=== PATIENT | female | born 2000 | race Caucasian/White ===

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

== ENCOUNTER 2025-03-14 16:10 | Emergency (ER) | payer OTHER ==
--- NOTE | 2025-03-14 17:45 | ED ---
General Adult HPI - General Chief complaint: ENT Stated complaint: trouble swallowing Time Seen by Provider: 03/14/25 16:25 Source: patient, RN notes reviewed Mode of arrival: ambulatory Limitations: no limitations - History of Present Illness Initial comments: 24-year-old female presents emergency department with complaints of sore throat, difficulty in swallowing. States that symptoms have been worsening over the past 3 days. Endorses chills with no reported fevers. Denies cough. Endorses congestion and rhinorrhea. States that she has a frequent recurrence of strep pharyngitis. Denies recent antibiotic use. Denies difficulty in swallowing however states that this is painful. - Related Data Home Medications Medication Instructions Recorded Confirmed Cetirizine HCl [Zyrtec] 10 mg PO HS 01/27/18 03/23/19 cloNIDine HCL [Catapres] 0.1 mg PO HS 01/27/18 03/23/19 Albuterol Inhaler [Ventolin Hfa 2 puff INHALATION RT-Q6H PRN 09/08/18 03/23/19 Inhaler] Albuterol Nebulized [Ventolin 2.5 mg INHALATION RT-Q6H PRN 09/08/18 03/23/19 Nebulized] Norgestimate-Ethinyl Estradiol 1 tab PO HS 09/08/18 03/23/19 [Ortho Tri-Cyclen 28 Tablet] predniSONE 10 mg PO TID 03/23/19 03/23/19 Previous Rx's Medication Instructions Recorded Albuterol Inhaler [Ventolin Hfa 1 - 2 puff INHALATION RT-Q6H PRN 09/08/18 Inhaler] 30 Days #2 inhaler Omeprazole [PriLOSEC] 20 mg PO AC-BRKFST #14 cap 09/14/18 Fluticasone Nasal [place] [Flonase 1 spray EA NOSTRIL DAILY 3 Days #1 03/24/19 Nasal [place]] bottle Loratadine [Claritin] 10 mg PO DAILY 7 Days #7 tab 03/24/19 Amoxicillin 875 mg PO Q12HR #20 tablet 03/14/25 Allergies Allergy/AdvReac Type Severity Reaction Status Date / Time aspirin Allergy Swelling Verified 03/14/25 16:21 Review of Systems ROS Statement: Those systems with pertinent positive or pertinent negative responses have been documented in the HPI. ROS Other: All systems not noted in ROS Statement are negative. Past Medical History Past Medical History: Asthma History of Any Multi-Drug Resistant Organisms: None Reported Past Surgical History: No Surgical Hx Reported Past Psychological History: Depression Smoking Status: Current every day smoker, Vaper Past Alcohol Use History: Occasional Past Drug Use History: Marijuana General Exam Limitations: no limitations General appearance: alert, in no apparent distress ENT exam: Present: normal exam, mucous membranes moist Expanded Throat exam: tonsillar erythema, tonsillomegaly, tonsillar exudate. negative: R peritonsillar mass, L peritonsillar mass Neck exam: Present: normal inspection, lymphadenopathy (tonsillar). Absent: tenderness, meningismus Respiratory exam: Present: normal lung sounds bilaterally. Absent: respiratory distress, wheezes, rales, rhonchi, stridor Cardiovascular Exam: Present: regular rate, normal rhythm, normal heart sounds. Absent: systolic murmur, diastolic murmur, rubs, gallop, clicks GI/Abdominal exam: Present: soft, normal bowel sounds. Absent: distended, tenderness, guarding, rebound, rigid Extremities exam: Present: normal inspection, full ROM, normal capillary refill. Absent: tenderness, pedal edema, joint swelling, calf tenderness Back exam: Present: normal inspection Course Vital Signs 03/14/25 03/14/25 16:17 18:31 Temperature 98.3 F 98.4 F Pulse Rate 65 62 Respiratory 16 18 Rate Blood Pressure 104/62 109/69 O2 Sat by Pulse 100 100 Oximetry Medical Decision Making - Medical Decision Making Was pt. sent in by a medical professional or institution (, PA, BUNDLE BREAKER, urgent care, hospital, or half-way...) When possible be specific @ -No Did you speak to anyone other than the patient for history (EMS, parent, family, police, friend...)? What history was obtained from this source @ -No Did you review nursing and triage notes (agree or disagree)? Why? @ -I reviewed and agree with nursing and triage notes Were old charts reviewed (outside hosp., previous admission, EMS record, old EKG, old radiological studies, urgent care reports/EKG's, half-way records)? Report findings @ -No old charts were reviewed Differential Diagnosis (chest pain, altered mental status, abdominal pain women, abdominal pain men, vaginal bleeding, weakness, fever, dyspnea, syncope, headache, dizziness, GI bleed, back pain, seizure, CVA, palpatations, mental health, musculoskeletal)? @ -COVID 19, RSV, influenza, pneumonia, acute bronchitis, URI, strep pharyngitis , this list is not all inclusive EKG interpreted by me (3pts min.). @ -None X-rays interpreted by me (1pt min.). @ -None done CT interpreted by me (1pt min.). @ -None done U/S interpreted by me (1pt. min.). @ -None done What testing was considered but not performed or refused? (CT, X-rays, U/S, labs)? Why? @ -None What meds were considered but not given or refused? Why? @ -None Did you discuss the management of the patient with other professionals (professionals i.e. , PA, BUNDLE BREAKER, lab, RT, psych nurse, manager social media, advertising operations manager, teacher, health officer, outsole caser)? Give summary @ -No Was smoking cessation discussed for >3mins.? @ -No Was critical care preformed (if so, how long)? @ -No Were there social determinants of health that impacted care today? How? (Homelessness, low income, unemployed, alcoholism, drug addiction, transportation, low edu. Level, literacy, decrease access to med. care, penitentiary, rehab)? @ -No Was there de-escalation of care discussed even if they declined (Discuss DNR or withdrawal of care, Hospice)? DNR status @ -No What co-morbidities impacted this encounter? (DM, HTN, Smoking, COPD, CAD, Cancer, CVA, ARF, Chemo, Hep., AIDS, mental health diagnosis, sleep apnea, morbid obesity)? @ -None Was patient admitted / discharged? Hospital course, mention meds given and route, prescriptions, significant lab abnormalities, going to OR and other pertinent info. @ -Discharged. 24-year-old female presenting to emergency department with sore throat. Patient has elevated Centor criteria with bilateral tonsillar exudates and tonsillar erythema, absence of cough, low-grade fevers. Patient will be treated for strep pharyngitis with amoxicillin. Additionally, is provided with oral lidocaine for numbing and dose of Decadron. case discussed with Dr. Castañeda Undiagnosed new problem with uncertain prognosis? @ -No Drug Therapy requiring intensive monitoring for toxicity (Heparin, Nitro, Insulin, Cardizem)? @ -No Were any procedures done? @ -No Diagnosis/symptom? @ -Strep pharyngitis Acute, or Chronic, or Acute on Chronic? @ -Acute Uncomplicated (without systemic symptoms) or Complicated (systemic symptoms)? @ -uncomplicated Side effects of treatment? @ -No Exacerbation, Progression, or Severe Exacerbation? @ -No Poses a threat to life or bodily function? How? (Chest pain, [place], [place], pneumonia, PE, COPD, DKA, ARF, appy, cholecystitis, CVA, Diverticulitis, Homicidal, Suicidal, threat to staff... and all critical care pts) @ -No - Lab Data Lab Results 03/14/25 03/14/25 Range/Units 18:12 18:12 Influenza Type A (PCR) Not Detected (Not Detectd) Influenza Type B (PCR) Not Detected (Not Detectd) RSV (PCR) Not Detected (Not Detectd) SARS-CoV-2 (PCR) Not Detected (Not Detectd) Group A Strep (PCR) DETECTED A (Not Detectd) Disposition Clinical Impression: Strep pharyngitis Disposition: HOME SELF-CARE Condition: Stable Instructions (If sedation given, give patient instructions): Strep Throat (ED) Additional Instructions: Please return to the Emergency Department if symptoms worsen or any other concerns. Prescriptions: Amoxicillin 875 mg PO Q12HR #20 tablet Is patient prescribed a controlled substance at d/c from ED?: No Referrals: None,Stated [Primary Care Provider] - 1-2 days Time of Disposition: 18:00
[2025-03-14] MEDS: DEXAMETHASONE SOD PHOSPHATE 4 MG/ML 1 ML VIAL IM STA (18:21)
[2025-03-14] MEDS: LIDOCAINE VISCOUS 2% 15 ML CUP PO ONE (18:21)
[2025-03-14] MEDS: AMOXICILLIN 875 MG TAB PO STA (18:22)
[2025-03-14 18:37] VITALS: BP 109/69; PULSE 62; RESP 18; TEMP 98.4
[2025-03-14 18:54] LABS: Influenza A Not Detected (Not Detectd); Influenza B Not Detected (Not Detectd); RSV Not Detected (Not Detectd)
== END 2025-03-14 18:42 | disposition home or self-care (01) ==
LOC: EC 16:10
DX: J02.0 Streptococcal pharyngitis (principal); F17.290 Nicotine dependence, other tobacco product, uncomplicated; Z88.6 Allergy status to analgesic agent
CPT/HCPCS: 87651; 87636; 99283; 96372; J1100

== ENCOUNTER 2025-05-23 16:22 | Emergency (ER) | payer OTHER ==
[2025-05-23 16:25] VITALS: RESP 18
--- NOTE | 2025-05-23 16:41 | ED ---
General Adult HPI - General Chief complaint: ENT Stated complaint: Swollen throat,can't speak Time Seen by Provider: 05/23/25 16:27 Source: family Mode of arrival: ambulatory Limitations: no limitations - History of Present Illness Initial comments: 25-year-old female presenting to the emergency department complaints of sore throat and pain with swallowing that has been worsening over the past 2 days. Patient states that she currently gets strep throat and this feels similar. States that she has pain with speaking. Reports low-grade fevers over the past 2 days and nasal congestion. Denies cough, abdominal pain, vomiting, rashes. States she has not taken any medications yet today. - Related Data Home Medications Medication Instructions Recorded Confirmed Cetirizine HCl [Zyrtec] 10 mg PO HS 01/27/18 03/23/19 cloNIDine HCL [Catapres] 0.1 mg PO HS 01/27/18 03/23/19 Albuterol Inhaler [Ventolin Hfa 2 puff INHALATION RT-Q6H PRN 09/08/18 03/23/19 Inhaler] Albuterol Nebulized [Ventolin 2.5 mg INHALATION RT-Q6H PRN 09/08/18 03/23/19 Nebulized] Norgestimate-Ethinyl Estradiol 1 tab PO HS 09/08/18 03/23/19 [Ortho Tri-Cyclen 28 Tablet] predniSONE 10 mg PO TID 03/23/19 03/23/19 Previous Rx's Medication Instructions Recorded Albuterol Inhaler [Ventolin Hfa 1 - 2 puff INHALATION RT-Q6H PRN 09/08/18 Inhaler] 30 Days #2 inhaler Omeprazole [PriLOSEC] 20 mg PO AC-BRKFST #14 cap 09/14/18 Fluticasone Nasal [place] [Flonase 1 spray EA NOSTRIL DAILY 3 Days #1 03/24/19 Nasal [place]] bottle Loratadine [Claritin] 10 mg PO DAILY 7 Days #7 tab 03/24/19 Amoxicillin 875 mg PO Q12HR #20 tablet 03/14/25 Allergies Allergy/AdvReac Type Severity Reaction Status Date / Time aspirin Allergy Swelling Verified 03/14/25 16:21 Review of Systems ROS Statement: Those systems with pertinent positive or pertinent negative responses have been documented in the HPI. ROS Other: All systems not noted in ROS Statement are negative. Past Medical History Past Medical History: Asthma History of Any Multi-Drug Resistant Organisms: None Reported Past Surgical History: No Surgical Hx Reported Past Psychological History: Depression Smoking Status: Current every day smoker, Vaper Past Alcohol Use History: Occasional Past Drug Use History: Marijuana General Exam Limitations: no limitations Expanded Throat exam: tonsillar erythema, tonsillomegaly, tonsillar exudate. negative: R peritonsillar mass, L peritonsillar mass Neck exam: Present: tenderness, full ROM, lymphadenopathy. Absent: meningismus Respiratory exam: Present: normal lung sounds bilaterally. Absent: respiratory distress, wheezes, rales, rhonchi, stridor Cardiovascular Exam: Present: regular rate, normal rhythm, normal heart sounds. Absent: systolic murmur, diastolic murmur, rubs, gallop, clicks GI/Abdominal exam: Present: soft, normal bowel sounds. Absent: distended, tenderness, guarding, rebound, rigid Extremities exam: Present: normal inspection, full ROM, normal capillary refill. Absent: tenderness, pedal edema, joint swelling, calf tenderness Course Vital Signs 05/23/25 16:22 Temperature 99.2 F Pulse Rate 74 Respiratory 18 Rate Blood Pressure 111/76 O2 Sat by Pulse 99 Oximetry Medical Decision Making - Medical Decision Making Was pt. sent in by a medical professional or institution (FRANCES Connelly, HUMAN RESOURCES DESIGNATE, urgent care, hospital, or fci...) When possible be specific @ -No Did you speak to anyone other than the patient for history (EMS, parent, family, police, friend...)? What history was obtained from this source @ -No Did you review nursing and triage notes (agree or disagree)? Why? @ -I reviewed and agree with nursing and triage notes Were old charts reviewed (outside hosp., previous admission, EMS record, old EKG, old radiological studies, urgent care reports/EKG's, fci records)? Report findings @ -No old charts were reviewed Differential Diagnosis (chest pain, altered mental status, abdominal pain women, abdominal pain men, vaginal bleeding, weakness, fever, dyspnea, syncope, headache, dizziness, GI bleed, back pain, seizure, CVA, palpatations, mental health, musculoskeletal)? @ -Strep pharyngitis, tonsillitis, peritonsillar abscess, this list is not all inclusive EKG interpreted by me (3pts min.). @ -None X-rays interpreted by me (1pt min.). @ -None done CT interpreted by me (1pt min.). @ -None done U/S interpreted by me (1pt. min.). @ -None done What testing was considered but not performed or refused? (CT, X-rays, U/S, labs)? Why? @ -None What meds were considered but not given or refused? Why? @ -None Did you discuss the management of the patient with other professionals (professionals i.e. DrOliver, PA, HUMAN RESOURCES DESIGNATE, lab, RT, psych nurse, social studies department chair, cosmetician apprentice, teacher, law enforcement officer, manager hvac)? Give summary @ -No Was smoking cessation discussed for >3mins.? @ -No Was critical care preformed (if so, how long)? @ -No Were there social determinants of health that impacted care today? How? (Homelessness, low income, unemployed, alcoholism, drug addiction, transportation, low edu. Level, literacy, decrease access to med. care, retirement, rehab)? @ -No Was there de-escalation of care discussed even if they declined (Discuss DNR or withdrawal of care, Hospice)? DNR status @ -No What co-morbidities impacted this encounter? (DM, HTN, Smoking, COPD, CAD, Cancer, CVA, ARF, Chemo, Hep., AIDS, mental health diagnosis, sleep apnea, morbid obesity)? @ -None Was patient admitted / discharged? Hospital course, mention meds given and rout e, prescriptions, significant lab abnormalities, going to OR and other pertinent info. @ -Discharge. 25 open presented with complaints of sore throat. Patient is noted to have bilateral tonsillomegaly, tonsillar erythema and tonsillar exudates. Cervical lymphadenopathy and absence of cough. Patient will be treated for strep pharyngitis with amoxicillin. She is provided with Toradol and Decadron in the emergency department. Recommend she continue Tylenol Motrin as needed for pain. Case discussed with Dr. peterson Undiagnosed new problem with uncertain prognosis? @ -No Drug Therapy requiring intensive monitoring for toxicity (Heparin, Nitro, Insulin, Cardizem)? @ -No Were any procedures done? @ -No Diagnosis/symptom? @ -strep pharyngitis Acute, or Chronic, or Acute on Chronic? @ -acute Uncomplicated (without systemic symptoms) or Complicated (systemic symptoms)? @ -uncomplicated Side effects of treatment? @ -No Exacerbation, Progression, or Severe Exacerbation? @ -No Poses a threat to life or bodily function? How? (Chest pain, [place], [place], pneumonia, PE, COPD, DKA, ARF, appy, cholecystitis, CVA, Diverticulitis, Homicidal, Suicidal, threat to staff... and all critical care pts) @ -No Disposition Clinical Impression: Strep pharyngitis Disposition: HOME SELF-CARE Condition: Good Instructions (If sedation given, give patient instructions): Strep Throat (DC) Additional Instructions: Please return to the Emergency Department if symptoms worsen or any other concerns. Please complete full course of amoxicillin as prescribed. Continue to take Tylenol and Motrin as needed for pain and fever relief. Is patient prescribed a controlled substance at d/c from ED?: No Referrals: None,Stated [Primary Care Provider] - 1-2 days Forms: Area PCPs Time of Disposition: 16:40
[2025-05-23] MEDS: DEXAMETHASONE SOD PHOSPHATE 10 MG/ML 1 ML VIAL IM STA (16:54)
[2025-05-23] MEDS: KETOROLAC 15 MG/ML 1 ML VIAL IM STA (16:54)
[2025-05-23 17:24] VITALS: BP 112/80; PULSE 72; TEMP 98.7
== END 2025-05-23 17:23 | disposition home or self-care (01) ==
LOC: EC 16:22
DX: J02.0 Streptococcal pharyngitis (principal); B95.0 Streptococcus, group A, as the cause of diseases classified elsewhere; F17.290 Nicotine dependence, other tobacco product, uncomplicated; Z88.6 Allergy status to analgesic agent
CPT/HCPCS: 87651; 96372; 99283; J1100